=== PATIENT | female | born 1990 | race Caucasian/White ===

== ENCOUNTER 2020-06-28 22:10 | Inpatient (IN) ==
[~2020-06-28 22:10] MED LIST: LACTATED RINGERS 1,000 ML IV ONE; LACTATED RINGERS 500 ML IV PRN; MEPERIDINE 50 MG/1 ML VIAL IV PRN; ONDANSETRON 4 MG/2 ML VIAL IV PRN
[2020-06-28] MEDS ORDERED: AMPICILLIN INJ 2,000 MG in SODIUM CHLORIDE 0.9% 100 ML IV ONE (22:17)
[2020-06-28] MEDS ORDERED: LACTATED RINGERS 1,000 ML IV SCH (22:30)
[2020-06-28 23:02] LABS: Basophils % 0.2 % (0.0-0.8); Eosinophils % 0.2 % (0.00-10.9); Hematocrit 30.8 VOL% (35.7-47.0); Hemoglobin 10.4 GM/DL (12.0-16.0); Immature Granulocytes % 0.5 %; Immature Granulocytes Absolute 0.06 #; Lymphocytes # 2.7 10*3/uL (1.4-4.0); Lymphocytes % 21.5 % (21.3-54.2); Mean Corpuscular HGB Conc 33.8 GM/DL (32-36); Mean Corpuscular Volume 85.6 FL (87-102); Mean Platelet Volume 11.2 FL (9.6-12.0); Monocytes % 6.9 % (1.7-12.7); Neutrophils % 70.7 % (38.7-73.9); Platelet Count 239 T/CUMM (130-400); Red Cell Distribution Width 15.7 % (9.3-17.3); White Blood Count 12.3 T/CUMM (4-12)
[2020-06-28 23:29] LABS: Albumin 2.4 G/DL (3.4-5.0); Bilirubin,Total 0.4 MG/DL (0.2-1.0); Calcium 8.9 MG/DL (8.5-10.1); Total Protein 6.8 G/DL (6.4-8.3)
[2020-06-28 23:49] LABS: Bacteria,Urine Occasional /HPF (Few); Bilirubin,Urine Negative (Negative); Blood, Urine Small mg/dL (Negative); Glucose,Urine (UA) Negative (Negative); Ketones,Urine Negative (Negative); Mucus,Urine Occasional /LPF (Occasional); Nitrite,Urine Negative (Negative); Protein,Urine Negative; RBC,Urine <1 /HPF (0-4); Squamous Epithelial Cell,Urine Occasional /HPF (0-10); Urine Appearance CLEAR (Clear); Urine Color Yellow (Yellow); Urine Specific Gravity 1.014 (1.001-1.035); Urine Urobilinogen < 2.0 EU/DL (0.2-1.0); WBC,Urine 1 /HPF (0-6)
[2020-06-29] MEDS ORDERED: SODIUM CHLORIDE 0.9% 0 ML IV ONE (01:30)
[2020-06-29] MEDS ORDERED: miSOPROStoL 200 MCG TABLET ONE (01:30)
[2020-06-29] MEDS ORDERED: OXYTOCIN/LR 20 UNIT/1,000 ML BAG IV ONE ×2 (01:30→03:08)
[2020-06-29] MEDS ORDERED: TRANEXAMIC ACID 1,000 MG/10 ML VIAL ONE (01:30)
[2020-06-29] MEDS ORDERED: METHYLERGONOVINE 0.2 MG/1 ML AMP ONE (01:31)
[2020-06-29] MEDS ORDERED: CARBOPROST TROMETHAMINE 250 MCG/ML AMP IM ONE (01:31)
[2020-06-29] MEDS ORDERED: LIDOCAINE 1% 50 ML VIAL ONE (01:32)
[2020-06-29 02:23] LABS: Cord Arterial Blood HCO3 18.3 MMOL/L
[2020-06-29 02:26] LABS: Cord Venous Blood HCO3 20.8 MMOL/L; Cord Venous Blood PCO2 44.6 MMHG; Cord Venous Blood PO2 27.1
[2020-06-29] MEDS ORDERED: AMPICILLIN INJ 1,000 MG in SODIUM CHLORIDE 0.9% 100 ML IV SCH (02:30)
[2020-06-29] MEDS ORDERED: BENZOCAINE 20%/MENTHOL 0.5% SPRAY 56 GM CAN TOP PRN (03:17)
[2020-06-29] MEDS ORDERED: oxyCODONE/ACETAMINOPHEN 5-325 MG TABLET PO PRN (03:20)
[2020-06-29] MEDS: IBUPROFEN 800 MG TABLET PO PRN ×2 (12:05→23:15)
[2020-06-30 04:38] LABS: Basophils % 0.2 % (0.0-0.8); Eosinophils # 0.1 10*3/uL (0.0-0.87); Eosinophils % 0.6 % (0.00-10.9); Hematocrit 28.7 VOL% (35.7-47.0); Hemoglobin 9.4 GM/DL (12.0-16.0); Immature Granulocytes % 0.6 %; Immature Granulocytes Absolute 0.08 #; Lymphocytes # 3.2 10*3/uL (1.4-4.0); Lymphocytes % 24.8 % (21.3-54.2); Mean Corpuscular HGB Conc 32.8 GM/DL (32-36); Mean Platelet Volume 11.1 FL (9.6-12.0); Monocytes % 6.3 % (1.7-12.7); Neutrophils % 67.5 % (38.7-73.9); Platelet Count 209 T/CUMM (130-400); Red Cell Distribution Width 15.8 % (9.3-17.3); White Blood Count 12.7 T/CUMM (4-12)
[2020-06-30 07:11] VITALS: BP 111/65
[2020-06-30] MEDS ORDERED: FERROUS SULFATE 325 MG TABLET PO SCH (09:00)
[2020-06-30] MEDS ORDERED: DOCUSATE SODIUM 100 MG CAPSULE PO SCH (09:00)
== END 2020-06-30 16:00 | disposition home or self-care (01) | DRG 807 ==
LOC: N.LD → N.OB 06-29 04:59
PROVIDERS: ADMIT Specialist; ATTEND Obstetrics & Gynecology